=== PATIENT | male | born 1985 | race Caucasian/White ===

== ENCOUNTER 2020-03-15 20:28 | Inpatient (IN) | payer OTHER ==
[2020-03-15] VITALS (7 sets, daily range): BP systolic 129–157; BP diastolic 74–98
[~2020-03-15] VITALS: Ht 165.1 cm; Wt 43.1 kg
--- NOTE | 2020-03-15 21:06 | NUR ---
Received pt from EMS transfer from [facility]. Pt instructed on room and TV, call light, etc. New EKG leads placed on pt. NSR to Stach on bedside monitor. IV 20 G to left thumb site infusing without complications. Insulin 100 Units/100 ml NS at 0.5 units/0.5 ml/hour, D5w with 20 meqKCL at 250 m/hour. Pt states he ate 2-3 hours ago. Awake, Aox3. MORENO equally. Pt states he needs to void. In progress now with urinal.
--- NOTE | 2020-03-15 21:06 | NUR ---
Pt is high risk for falls. See scoring for mena fall scale. Pt refuses to wear yellow socks. Yellow fall band on pt
--- NOTE | 2020-03-15 21:45 | NUR ---
Bedside glucose 122. Insulin infusion at the same rate
--- NOTE | 2020-03-15 22:40 | NUR ---
Called and spoke to Dr. Rowland hospitalist. MD aware of hx and pt's medications. MD aware of prior D5W with 20 meqKCL per liter at 250 ml/hour from other hospital with insulin infusion at 0.5 units/hour. Bedside glucose checks q1 hour per protocol. MD states to use Column/Level 3 of ICU insulin order sheet. MD aware BG 151 at 2240 and insulin infusion increased to 2 units/hour= 2ml/hour. MD states to do medication reconciliation.
[2020-03-15] MEDS ORDERED: D5W-1/2 NS/KCL 20MEQ 1,000 ML ONE (22:54)
[2020-03-15] MEDS: D5W-1/2NS 1000ML 1,000 ML IV SCH (23:00)
[2020-03-15] MEDS ORDERED: GLUCAGEN IM PRN (23:00)
[2020-03-15] MEDS ORDERED: DEXTROSE 50%-WATER SYRINGE IV PRN (23:00)
[2020-03-15 23:25] LABS: BASOPHIL # 0.1 10^3/uL (0.0-0.1); BASOPHIL % 0.8 % (0.0-0.2); EOSINOPHIL # 0.1 10^3/uL (0.0-0.2); EOSINOPHIL % 0.9 % (0.0-5.0); LYMPHOCYTES # 2.62 10^3/uL1 (1.0-4.8); LYMPHOCYTES % 22.3 % (24.0-44.0); MONOCYTES # 0.7 10^3/uL (0.3-0.8); MONOCYTES % 6.1 % (5.0-12.0); NEUTROPHIL # 8.2 10^3/uL (1.8-7.7); NEUTROPHILS % 69.4 % (41.0-85.0); PLATELET COUNT 391 10^3/uL (150-400); RED CELL DISTRIBUTION WIDTH 15.6 % (11.5-14.5)
--- NOTE | 2020-03-15 23:30 | NUR ---
Called Dr. Rowland via Telemed tonight. MD aware of full head to toe assessment via EKO. MD aware no abdominal pain or tenderness to palpation. 12 Lead EKG to be ordered. Bedside glucose checks q1 hour per protocol. MD states to continue to use Column/Level 3 of ICU insulin order sheet. MD states to do medication reconciliation.
[2020-03-15 23:37] LABS: CALCIUM 8.5 mg/dL (8.4-10.5); CARBON DIOXIDE 22.5 mmol/L (20.0-32)
--- NOTE | 2020-03-15 23:41 | PCM.EKG ---
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
[2020-03-16] VITALS (48 sets, daily range): BP systolic 132–181; BP diastolic 78–114
--- NOTE | 2020-03-16 00:35 | NUR ---
Called and spoke to Dr Rowland re: abnormal 12 Lead EKG result done by RT. Aware possible low voltage on EKG and compared to prior 12 lead EKG from other hospital which was WNL except Sinus tachycardia and biatrial enlargement. No new orders at this time. to review new 12 lead EKG. aware labs are resulted and aware of anion gap of 18.7 and Bun, creatinine, and phosporus levels. Addendum: 03/16/20 at 0044 by AIME GARZA RN,ICU,RAC RN Dr. Rowland aware this RN unable to perform medication reconciliation due to [employer] shows medication reconciliation cannot be done due to being locked by . states he is not logged onto computer system at present.
--- NOTE | 2020-03-16 00:35 | NUR ---
MD states to hold norvasc and lisinopril meds tonight. Pt to remain NPO including no water tonight until bicarb >20 and ion gap should be closed. Pt aware no food or water tonight until DKA resolves.
[2020-03-16] MEDS ORDERED: D5W-1/2 NS/KCL 20MEQ 1,000 ML ONE ×2 (01:46→06:54)
[2020-03-16] MEDS ORDERED: AMLO10TA4 PO (03:03)
[2020-03-16] MEDS ORDERED: INSU100V37 SQ (03:03)
[2020-03-16] MEDS ORDERED: INSU100V8 SQ (03:03)
[2020-03-16] MEDS ORDERED: LISI30TA4 PO (03:03)
[2020-03-16] MEDS: D5W-1/2NS 1000ML 1,000 ML IV SCH ×3 (03:35→11:00)
--- NOTE | 2020-03-16 03:35 | NUR ---
New bag of d5 1/2 ns with 20 meqKCL at 250 ml/hour hung per order.
--- NOTE | 2020-03-16 03:55 | NUR ---
Called and spoke to Dr. Rowland regarding no BMP ordered for AM lab only CBC and A1C. MD requested for BMP q4 hours starting at 0400 now. nuclear cardiology technologist aware. MD also aware BP 150s-160s with diastolic BP of 102
[2020-03-16] MEDS ORDERED: HUMULIN R 100 UNIT in NS 100ML 100 ML IV SCH (04:30)
[2020-03-16 04:56] LABS: BASOPHIL # 0.1 10^3/uL (0.0-0.1); BASOPHIL % 1.2 % (0.0-0.2); EOSINOPHIL # 0.2 10^3/uL (0.0-0.2); EOSINOPHIL % 1.6 % (0.0-5.0); LYMPHOCYTES # 3.35 10^3/uL1 (1.0-4.8); LYMPHOCYTES % 30.5 % (24.0-44.0); MONOCYTES # 0.8 10^3/uL (0.3-0.8); MONOCYTES % 7.2 % (5.0-12.0); NEUTROPHIL # 6.5 10^3/uL (1.8-7.7); NEUTROPHILS % 59.3 % (41.0-85.0); PLATELET COUNT 431 10^3/uL (150-400); RED CELL DISTRIBUTION WIDTH 15.7 % (11.5-14.5)
--- NOTE | 2020-03-16 05:10 | NUR ---
Bedside glucose 140. Insulin drip at same rate since 414 at 1.5 units/hour=1.5 ml/hour. Pt resting quietly with sore snoring heard. No airway obstruction. Pt voided 4x this shift recorded in I & O. D5 1/2 NS with 20 meq KCL at 250 ml/hour continued. Pt denies N/V and abdominal pain and tenderness.
[2020-03-16 05:18] LABS: CALCIUM 8.4 mg/dL (8.4-10.5); CARBON DIOXIDE 24.5 mmol/L (20.0-32)
--- NOTE | 2020-03-16 06:41 | NUR ---
Pt resting quietly with soft snoring noted. No apnea noted. Pt arouses easily to gentle touch. NSR 98 on phototypesetting equipment monitor. Bedside glucose checks q1 hours
--- NOTE | 2020-03-16 06:55 | NUR ---
Report given to Zandra SOLVENT PLANT OPERATOR. Aware of assessment and IV Fluids including insulin drip rate and protocol. Also informed of q4h BMP next due at 0800
--- NOTE | 2020-03-16 08:14 | PCM.HP ---
History of Present Illness Reason for Visit: DKA History of Present Illness Pt is a 34 y/o M with PMHx of poorly controlled T1DM, who presents as a direct ICU admission from [place] for DKA. He states he has been using his insulin as prescribed, but ran out of his medication about 1 week ago and is still waiting on [facility] to fill it. Per the ED physician in [place], the patient frequently presents with DKA. OSH records were sent with the patient, but are unfortunately not available to me for review. The patient himself states that he started having symptoms of nausea/vomiting ~1-2 days ago, and presented to the ED quickly for further evaluation, as he is familiar with the signs/symptoms of DKA. He was started in IVF and insulin at that facility and transferred to [place] for further care On arrival to our facility, the patient was tachycardic, but otherwise afebrile and hemodynamically stable. Initial accucheck on arrival found that his glucose had already decreased to 120. Bicarb was 22 and AG 18 on initial CMP. He was continued on insulin gtt and started on D5w-1/2NS-20K for IVF. A1c returned at 12.5. Subsequent BMP this AM showed his Bicarb was 24 and AG had decreased to 13. Review of Systems Other Review of systems including general, HEENT, neck, cardiopulmonary, GI, , neuro-musculoskeletal, hematologic, oncologic, endocrinology, infectious disease, dermatologic and psychiatric were reviewed with the patient and are negative unless otherwise noted in the HPI. Allergies: Coded Allergies: Sulfa (Sulfonamide Antibiotics) (Verified Allergy, Unknown, 03/16/20) gluten (Verified Allergy, Unknown, 03/16/20) latex (Verified Allergy, Unknown, 03/16/20) Scheduled Amlodipine Besylate (Norvasc), 10 MG PO DAILY24, (Reported) Insulin Glargine,Hum.rec.anlog (Lantus), 20 UNIT SQ BID, (Reported) Insulin Lispro (Insulin Lispro), Unknown Dose SQ TIDM, (Reported) Lisinopril (Lisinopril), 1 TAB PO DAILY, (Reported) VTE VTE Risk Total Score: 5 VTE Risk Score VTE Risk: Score 0-1 = Low Risk (Aggressive mobilization; early ambulation; no VTE prophylaxis required) Score 2: Moderate Risk (Intermittent/Pneumatic Compression Device OR Lovenox/Heparin/Coumadin) Score 3-4: High Risk (Intermittent/Pneumatic Compression Device AND Lovenox/Heparin/Coumadin) Score > or =5: Highest Risk (Intermittent/Pneumatic Compression Device AND Lovenox/Heparin/Coumadin) VTE VTE Present on Admission: No Currently receiving anticoagul: No VTE Risk Total Score: 5 Exam Vital Signs Vital Signs Date Time Temp Pulse Resp B/P (MAP) Pulse Ox O2 Delivery O2 Flow Rate FiO2 03/16/20 06:00 99 33 148/91 (110) 98 03/16/20 05:30 Room Air 03/16/20 04:00 98.6 General Appearance: Alert, Oriented X3, Cooperative, No acute distress HEENT: Atraumatic, Mucous membr. moist/pink, Other (Poor dentition) Respiratory: Clear to auscultation, Normal air movement Cardiovascular: Normal S1, Normal S2, Other (slightly tachy) Abdominal: Normal bowel sounds, Soft, No tenderness, Other (*performed by nursing) Extremities: No clubbing, No cyanosis, No edema, Other (*performed by nursing) Skin: No rash, No breakdown, Other (*peformed by nursing) Neuro: Normal speech Psych/Mental Status: Mental status NL, Mood NL Assessment/Plan Assessment/Plan Assessment/Plan Pt is a 34 y/o M with PMHx of poorly controlled T1DM who presents with DKA. He was started on Insulin gtt and IVF at OSH ED and continued en route. By the time of his arrival, his hyperglycemia was resolved and his acidosis significantly improved. He was continued on Insulin gtt and IVF per DKA protocols on arrival to this facility. Subsequently labs later this AM showed near resolution of his AG. # DKA # Uncontrolled T1DM # HTN Plan: - admitted to ICU - continue insulin gtt and d5w-1/2NS until AG is closed and Bicarb is > 20, then transition to basal/bolus - +20meq K if potassium < 5.0 - NPO until ready to transition to basal/bolus - continue home lisinopril and amlodipine - dietary and diabetes education VTE ppx: ambulation GI ppx: n/a Diet: npo for now, then diabetic diet CODE: intelligence manager Spent: > 70 minutes spent in chart review, patient evaluation, coordination of care, and documentation This Telemedicine encounter was completed off-side from [facility] using Telemedicine audio/video equipment. IMER HERNANDEZ MD Mar 16, 2020 08:14
[2020-03-16 08:26] LABS: CALCIUM 8.2 mg/dL (8.4-10.5); CARBON DIOXIDE 26.6 mmol/L (20.0-32)
[2020-03-16] MEDS: ZESTRIL PO SCH (09:00)
[2020-03-16] MEDS: NORVASC PO SCH (09:00)
[2020-03-16] MEDS ORDERED: LANTUS SQ SCH (10:00)
--- NOTE | 2020-03-16 10:28 | PRM.PN ---
PROGRESS NOTE S/O/A/P Patient is seen and examined. He feels well now without nausea or vomiting. No abdominal pain. Assessment and plan: DKA /DM1 due to noncompliance.: Anion gap is closed bicarb level is above 20 the last 3 readings. Patient will be transitioned to subcu insulin. TDD based on home regimen is 20 units. TDD based on insulin infusion 1.5 u/hr = 36 units dosing TDD is 24(0.5 u/kg) Plan: - Give lantus 12 units daily starting now. - in 2 hrs stop the insulin infusion. start feeding with prandial lispro 4 u AC meals. PARK MONTEMAYOR MD Mar 16, 2020 10:28
[2020-03-16] MEDS ORDERED: HUMALOG SQ SCH (11:30)
--- NOTE | 2020-03-16 12:19 | NUR ---
DISCHARGE PLAN CASE MANAGEMENT VISITED WITH PATIENT AT BEDSIDE CONCERNING DISCHARGE PLAN AND NEEDS. LIVES AT HOME WITH MOTHER. IS INDEPENDENT OF ADLS. HAS DME INCLUDING A GLUCOMETER. CURRENTLY GOES TO THE [facility] IN [place]. PT STATED, "I'M GOING TO ASK FOR A NEW DOCTOR AT THE [facility]. THE ONE I HAD CANCELED MY APPOINTMENT 2 WEEKS BEFORE [place] AND THIS IS WHAT IT GETS ME, IN THE HOSPITAL. I NEED TO SEE IF I CAN GET MY MEDICATIONS REFILLED, MY MOM COULD PROBABLY HELP PAY IF NEEDED. I HAVE MY INSULIN, BUT IT'S MY OTHER MEDS. I USE [facility] IN [place]." CM PHONED [facility] IN [place] TO GET LIST OF LAST REFILLED MEDICATIONS AND NOTIFIED DR. MONTEMAYOR. DC PLAN IS TO DC HOME WITH MOM AND CONTINUE SELF CARE. CM WILL CONTINUE TO FOLLOW FOR DC NEEDS.
[2020-03-16 15:45] LABS: CALCIUM 8.8 mg/dL (8.4-10.5); CARBON DIOXIDE 25.9 mmol/L (20.0-32)
[2020-03-16] MEDS: HUMALOG SQ SCH ×3 (16:54→23:44)
--- NOTE | 2020-03-16 22:15 | NUR ---
contacted for HTN current BP 181/107. Norvasc was held this AM. Per , give 10 mg Norvasc now, with 25 mg Hydralazine PO.
[2020-03-16] MEDS ORDERED: APRESOLINE PO STA (22:17)
[2020-03-16] MEDS ORDERED: APRESOLINE ONE (22:21)
[2020-03-16] MEDS ORDERED: NORVASC PO SCH (22:30)
[2020-03-17] VITALS (29 sets, daily range): BP systolic 122–172; BP diastolic 73–132
[2020-03-17] MEDS: HUMALOG SQ SCH ×5 (04:00→12:00)
[2020-03-17 05:25] LABS: CALCIUM 8.6 mg/dL (8.4-10.5); CARBON DIOXIDE 26.2 mmol/L (20.0-32)
[2020-03-17] MEDS ORDERED: NORVASC PO ONE (06:00)
[2020-03-17] MEDS ORDERED: INSU100V8 SQ (07:54)
[2020-03-17] MEDS ORDERED: LISI30TA4 PO (07:54)
[2020-03-17] MEDS ORDERED: INSU100V SQ (07:54)
--- NOTE | 2020-03-17 08:02 | PRM.DC ---
Discharge Summary Chief Complaint: abdominal pain and vomiting. HPI and Diagnostic Evaluation History of Present Illness Pt is a 34 y/o M with PMHx of poorly controlled T1DM, who presents as a direct I [facility] admission from [place] for DKA. He states he has been using his insulin as prescribed, but ran out of his medication about 1 week ago and is still waiting on [facility] to fill it. Per the ED physician in [place], the patient frequently presents with DKA. OSH records were sent with the patient, but are unfortunately not available to me for review. The patient himself states that he started having symptoms of nausea/vomiting ~1-2 days ago, and presented to the ED quickly for further evaluation, as he is familiar with the signs/symptoms of DKA. He was started in IVF and insulin at that facility and transferred to [place] for further care On arrival to our facility, the patient was tachycardic, but otherwise afebrile and hemodynamically stable. Initial accucheck on arrival found that his glucose had already decreased to 120. Bicarb was 22 and AG 18 on initial CMP. He was continued on insulin gtt and started on D5w-1/2NS-20K for IVF. A1c returned at 12.5. Subsequent BMP this AM showed his Bicarb was 24 and AG had decreased to 13. Allergies: Coded Allergies: Sulfa (Sulfonamide Antibiotics) (Verified Allergy, Unknown, 03/16/20) gluten (Verified Allergy, Unknown, 03/16/20) latex (Verified Allergy, Unknown, 03/16/20) Home Meds Active Scripts Insulin Lispro (HUMALOG) 100 Unit/1 Ml Vial, 2 UNIT SQ AC for 30 Days, VIAL Prov:PARK MONTEMAYOR MD 03/17/20 Insulin Glargine,Hum.rec.anlog (LANTUS) 100 Unit/1 Ml Vial, 10 UNIT SQ DAILY for 14 Days, VIAL Prov:PARK MONTEMAYOR MD 03/17/20 Lisinopril (LISINOPRIL) 30 Mg Tablet, 1 TAB PO DAILY for 30 Days, #30 TAB 5 Refills Prov:PARK MONTEMAYOR MD 03/17/20 Reported Medications Insulin Lispro (Insulin Lispro) 100 Unit/Ml Vial, SQ TIDM 03/16/20 Amlodipine Besylate (NORVASC) 10 Mg Tablet, 10 MG PO DAILY24, TABLET 03/16/20 Insulin Glargine,Hum.rec.anlog (LANTUS) 100 Unit/1 Ml Vial, 20 UNIT SQ BID, VIAL 03/16/20 Scheduled Amlodipine Besylate (Norvasc), 10 MG PO DAILY24, (Reported) Insulin Glargine,Hum.rec.anlog (Lantus), 20 UNIT SQ BID, (Reported) Insulin Glargine,Hum.rec.anlog (Lantus), 10 UNIT SQ DAILY Insulin Lispro (Insulin Lispro), Unknown Dose SQ TIDM, (Reported) Insulin Lispro (Humalog), 2 UNIT SQ AC Lisinopril (Lisinopril), 1 TAB PO DAILY Procedures Laboratory Tests Test 03/15/20 21:44 03/15/20 22:37 03/15/20 23:05 03/15/20 23:49 Bedside Glucose 122 (70 - 110) 151 (70 - 110) 176 (70 - 110) White Blood Count 11.7 10^3/uL (4.5-11.0) Red Blood Count 4.46 10^6/uL (4.50-5.90) Hemoglobin 11.6 g/dL (13.9-16.3) Hematocrit 35.1 % (37.0-53.0) Mean Corpuscular Volume 78.7 fL (78-100) Mean Corpuscular Hemoglobin 26.0 pg (26-34) Mean Corpuscular Hemoglobin Concent 33.0 g/dL (33-36.5) Red Cell Distribution Width 15.6 % (11.5-14.5) Platelet Count 391 10^3/uL (150-400) Mean Platelet Volume 9.2 fL (7.8-11.0) Neutrophils (%) (Auto) 69.4 % (41.0-85.0) Lymphocytes (%) (Auto) 22.3 % (24.0-44.0) Monocytes (%) (Auto) 6.1 % (5.0-12.0) Neutrophils # (Auto) 8.2 10^3/uL (1.8-7.7) Lymphocytes # (Auto) 2.62 10^3/uL1 (1.0-4.8) Monocytes # (Auto) 0.7 10^3/uL (0.3-0.8) Absolute Immature Granulocyte (auto 0.06 10^3 u/L (0-2) Absolute Eosinophils (auto) 0.1 10^3/uL (0.0-0.2) Immature Granulocytes % 0.50 % (0.00-0.50) Eosinophils % 0.9 % (0.0-5.0) Basophils % 0.8 % (0.0-0.2) Basophils # 0.1 10^3/uL (0.0-0.1) Sodium Level 134 mmol/L (132-145) Potassium Level 4.2 mmol/L (3.6-5.2) Chloride Level 97.0 mmol/L (96-109) Carbon Dioxide Level 22.5 mmol/L (20.0-32) Anion Gap 18.7 Blood Urea Nitrogen 22 mg/dL (7-18) Creatinine 1.29 mg/dL (0.59-1.40) Estimated GFR () 76.3 (>/=60) Est GFR (CKD-EPI)(Non-Afr Grenadian) 63.0 (>/=60) BUN/Creatinine Ratio 17.0 Glucose Level 164 mg/dL (70-110) Calcium Level 8.5 mg/dL (8.4-10.5) Phosphorus Level 2.3 mg/dL (2.5-4.9) Magnesium Level 1.9 mg/dL (1.8-2.4) Total Bilirubin 0.3 mg/dL (0.2-1.0) Aspartate Amino Transf (AST/SGOT) 13 U/L (0-35) Alanine Aminotransferase (ALT/SGPT) 21 U/L (12-78) Alkaline Phosphatase 136 U/L (50-136) Total Protein 6.8 g/dL (6.4-8.2) Albumin 3.3 g/dL (3.4-5.0) Globulin 3.5 Albumin/Globulin Ratio 0.942 Test 03/16/20 01:11 03/16/20 01:53 03/16/20 03:10 03/16/20 04:22 Bedside Glucose 185 (70 - 110) 178 (70 - 110) 112 (70 - 110) 123 (70 - 110) Test 03/16/20 04:36 03/16/20 05:15 03/16/20 06:22 03/16/20 07:22 White Blood Count 11.0 10^3/uL (4.5-11.0) Red Blood Count 4.12 10^6/uL (4.50-5.90) Hemoglobin 10.7 g/dL (13.9-16.3) Hematocrit 32.4 % (37.0-53.0) Mean Corpuscular Volume 78.6 fL (78-100) Mean Corpuscular Hemoglobin 26.0 pg (26-34) Mean Corpuscular Hemoglobin Concent 33.0 g/dL (33-36.5) Red Cell Distribution Width 15.7 % (11.5-14.5) Platelet Count 431 10^3/uL (150-400) Mean Platelet Volume 9.3 fL (7.8-11.0) Neutrophils (%) (Auto) 59.3 % (41.0-85.0) Lymphocytes (%) (Auto) 30.5 % (24.0-44.0) Monocytes (%) (Auto) 7.2 % (5.0-12.0) Neutrophils # (Auto) 6.5 10^3/uL (1.8-7.7) Lymphocytes # (Auto) 3.35 10^3/uL1 (1.0-4.8) Monocytes # (Auto) 0.8 10^3/uL (0.3-0.8) Absolute Immature Granulocyte (auto 0.02 10^3 u/L (0-2) Absolute Eosinophils (auto) 0.2 10^3/uL (0.0-0.2) Immature Granulocytes % 0.20 % (0.00-0.50) Eosinophils % 1.6 % (0.0-5.0) Basophils % 1.2 % (0.0-0.2) Basophils # 0.1 10^3/uL (0.0-0.1) Sodium Level 138 mmol/L (132-145) Potassium Level 4.0 mmol/L (3.6-5.2) Chloride Level 104.0 mmol/L (96-109) Carbon Dioxide Level 24.5 mmol/L (20.0-32) Glucose Level 143 mg/dL (70-110) Blood Urea Nitrogen 14 mg/dL (7-18) Creatinine 1.00 mg/dL (0.59-1.40) Calcium Level 8.4 mg/dL (8.4-10.5) Anion Gap 13.5 Estimated GFR () 102.3 (>/=60) Est GFR (CKD-EPI)(Non-Afr Grenadian) 84.5 (>/=60) BUN/Creatinine Ratio 14.0 Hemoglobin A1c 12.5 % (0-5.7) Bedside Glucose 140 (70 - 110) 152 (70 - 110) 134 (70 - 110) Test 03/16/20 08:05 03/16/20 08:09 03/16/20 09:09 03/16/20 10:10 Sodium Level 137 mmol/L (132-145) Potassium Level 4.2 mmol/L (3.6-5.2) Chloride Level 104.0 mmol/L (96-109) Carbon Dioxide Level 26.6 mmol/L (20.0-32) Glucose Level 137 mg/dL (70-110) Blood Urea Nitrogen 12 mg/dL (7-18) Creatinine 0.93 mg/dL (0.59-1.40) Calcium Level 8.2 mg/dL (8.4-10.5) Anion Gap 10.6 Estimated GFR () 111.2 (>/=60) Est GFR (CKD-EPI)(Non-Afr Grenadian) 91.9 (>/=60) BUN/Creatinine Ratio 12.0 Bedside Glucose 130 (70 - 110) 103 (70 - 110) 117 (70 - 110) Test 03/16/20 11:14 03/16/20 12:19 03/16/20 13:00 03/16/20 13:13 Bedside Glucose 119 (70 - 110) 65 (70 - 110) 57 (70 - 110) 67 (70 - 110) Test 03/16/20 13:57 03/16/20 15:05 03/16/20 15:25 03/16/20 16:19 Bedside Glucose 100 (70 - 110) 70 (70 - 110) 183 (70 - 110) Sodium Level 135 mmol/L (132-145) Potassium Level 3.8 mmol/L (3.6-5.2) Chloride Level 101.0 mmol/L (96-109) Carbon Dioxide Level 25.9 mmol/L (20.0-32) Glucose Level 78 mg/dL (70-110) Blood Urea Nitrogen 9 mg/dL (7-18) Creatinine 1.00 mg/dL (0.59-1.40) Calcium Level 8.8 mg/dL (8.4-10.5) Anion Gap 11.9 Estimated GFR () 102.3 (>/=60) Est GFR (CKD-EPI)(Non-Afr Grenadian) 84.5 (>/=60) BUN/Creatinine Ratio 9.0 Test 03/16/20 19:31 03/16/20 20:47 03/16/20 23:43 03/17/20 04:21 Bedside Glucose 223 (70 - 110) 108 (70 - 110) 160 (70 - 110) 88 (70 - 110) Test 03/17/20 04:53 03/17/20 07:39 Sodium Level 139 mmol/L (132-145) Potassium Level 3.7 mmol/L (3.6-5.2) Chloride Level 105.0 mmol/L (96-109) Carbon Dioxide Level 26.2 mmol/L (20.0-32) Anion Gap 11.5 Blood Urea Nitrogen 7 mg/dL (7-18) Creatinine 0.78 mg/dL (0.59-1.40) Estimated GFR () 136.3 (>/=60) Est GFR (CKD-EPI)(Non-Afr Grenadian) 112.6 (>/=60) BUN/Creatinine Ratio 8.0 Glucose Level 99 mg/dL (70-110) Calcium Level 8.6 mg/dL (8.4-10.5) Total Bilirubin 0.2 mg/dL (0.2-1.0) Aspartate Amino Transf (AST/SGOT) 28 U/L (0-35) Alanine Aminotransferase (ALT/SGPT) 21 U/L (12-78) Alkaline Phosphatase 109 U/L (50-136) Total Protein 6.1 g/dL (6.4-8.2) Albumin 2.8 g/dL (3.4-5.0) Globulin 3.3 Albumin/Globulin Ratio 0.848 Bedside Glucose 122 (70 - 110) Hospital Course He was admitted to intensive care unit. We started DKA insulin infusion protocol. Monitoring his electrolytes and kidney function with metabolic status. He start to improve and his anion gap was closing. Resolution of DKA happened quickly and we transitioned him to subcu insulin. He is very sensitive to insulin. With a minimal insulin regimen his sugar was well controlled. On the day of discharge he feels very well and he tolerated meals. And his sugar is controlled. Condition/Impression Subjective: He feels well. No specific complaint. No more vomiting or abdominal pain. He tolerated all meals. No events overnight. Objective. Vital Signs Date Time Temp Pulse Resp B/P (MAP) Pulse Ox O2 Delivery O2 Flow Rate FiO2 03/17/20 06:00 95 15 131/77 (95) 95 03/17/20 04:00 98.6 03/17/20 04:00 Room Air General Appearance: Alert, Oriented X3, Cooperative, No acute distress HEENT: Atraumatic, Mucous membr. moist/pink, Other (Poor dentition) Respiratory: Clear to auscultation, Normal air movement Cardiovascular: Normal S1, Normal S2 Abdominal: Normal bowel sounds, Soft, No tenderness. Extremities: No clubbing, No cyanosis, No edema. Skin: No rash, No breakdown. Neuro: Normal speech Psych/Mental Status: Mental status NL, Mood NL Activity Normal Diet Diabetic diet. Assessment Pt is a 34 y/o M with PMHx of poorly controlled T1DM who presents with DKA. # DKA # Uncontrolled T1DM The patient is noncompliant with medication for no clear reason. He has access to affordable care with appointments and medications but he said that he does not go to his primary care often. He was frequently educated about the risk of neglecting his diabetes care and long-term complication of diabetes. He denied issues with the cost as he gets his insulin for free or with low cost. I noticed that he is very sensitive to insulin and with minimal insulin regimen his sugar is well controlled. plan: -Lantus 10 units subcu daily. -Lispro 2 units before meals. I do not think he can do sliding scale in addition to prandial insulin. -[facility]. He was advised to follow-up with them soon as possible. # HTN Blood pressure was controlled with lisinopril we did not give amlodipine because blood pressure did not require additional medication. He will be discharged on lisinopril 30 mg p.o. daily. Follow-up Instructions [place] [facility] in 1 week after discharge. PARK MONTEMAYOR MD Mar 17, 2020 08:02
[2020-03-17] MEDS ORDERED: AMLO10TA4 PO (08:07)
[2020-03-17] MEDS ORDERED: CITA20TA9 PO (08:15)
[2020-03-17] MEDS: ZESTRIL PO SCH (08:29)
[2020-03-17] MEDS: NORVASC PO SCH (08:30)
[2020-03-17] MEDS ORDERED: LANTUS SQ SCH (09:00)
--- NOTE | 2020-03-17 13:50 | NUR ---
Patient discharged home with mother, left via private vehicle, belongings sent with patient. Patient to follow up with primary care physician on March 30, 2020.
== END 2020-03-17 14:07 | disposition home or self-care (01) | DRG 639 ==
LOC: ICU 20:28
PROVIDERS: ADMIT Internal Medicine; ATTEND Internal Medicine
DX: E10.10 Type 1 diabetes mellitus with ketoacidosis without coma (principal); I10 Essential (primary) hypertension; Z79.4 Long term (current) use of insulin; Z91.14 Patient's other noncompliance with medication regimen; Z91.19 Patient's noncompliance with other medical treatment and regimen; Z88.2 Allergy status to sulfonamides; Z88.8 Allergy status to other drugs, medicaments and biological substances; Z91.040 Latex allergy status; Z79.899 Other long term (current) drug therapy
CPT/HCPCS: 36415; 80048; 80053; 82948; 83036; 83735; 84100; 85025; 93005; G0378; J7070